=== PATIENT | male | born 1945 | race African-American/Black ===

== ENCOUNTER 2020-04-13 13:51 | Emergency (ER) | payer BC, MEDICARE, OTHER ==
[~2020-04-13] VITALS: Ht 180.3 cm; Wt 68.0 kg
[~2020-04-13 13:51] MED LIST: COLACE100 MG ORAL; NKM; NORCO 5-325 TA1 EACH ORAL
[2020-04-13 15:12] LABS: ANION GAP 13 mmol/L (5-15); BLOOD UREA NITROGEN 16 mg/dL (7-18); CALCIUM 9.6 MG/DL (8.5-10.1); CARBON DIOXIDE 25 MMOL/L (21-32); CHLORIDE 105 MMOL/L (98-107); POTASSIUM 3.8 MMOL/L (3.5-5.1); SODIUM 143 MMOL/L (136-145)
[2020-04-13 15:17] LABS: ALANINE AMINOTRANSFERASE 20 U/L (12-78); ALBUMIN 4.4 G/DL (3.4-5.0); ALBUMIN/GLOBULIN RATIO 1.4 (1.0-2.7); ALKALINE PHOSPHATASE 61 U/L (46-116); ASPARTATE AMINO TRANSFERASE 22 U/L (15-37); BILIRUBIN,TOTAL 0.8 MG/DL (0.2-1.0)
--- NOTE | 2020-04-13 15:20 | Emergency Room Report ---
History of Present Illness General Chief Complaint: Lower Extremity Injury Source: Patient, Medical Record Present Illness HPI This patient states that he has a history of neuropathy. This makes him unsteady on his feet. He states that a week ago he fell onto his left hip. He has a history of a hip fracture and has screws in his left hip. He states this surgery was 5 years ago. He states that a week ago when he fell it was early in the morning and he lost his balance. He has pain in his left hip and the left buttock. He denies left knee pain. He denies weakness. He denies tingling or numbness. He denies abdominal pain. He denies chest pain or shortness of breath. He denies abdominal pain. He states that the pain is so severe that he is able to only slightly bear weight on the left leg. He has been using a crutch to get around. He denies headache or neck pain. He has no other complaints. Allergies: Coded Allergies: PENICILLINS (Verified Allergy, Unknown, 07/17/15) COVID-19 Screening Contact w/high risk pt: No Experienced COVID-19 symptoms?: No COVID-19 Testing performed COMPENSATION INTERN: No Patient History Past Medical History: see triage record, other - Neuropathy Social History: Denies: smoking, alcohol use, drug use Reviewed Nursing Documentation: PMH: Agreed; PSxH: Agreed Nursing Documentation-PMH Past Medical History: No History, Except For Hx Cardiac Problems: No - left hip surgery Hx Cancer: No Hx Gastrointestinal Problems: No Hx Neurological Problems: No Review of Systems All Other Systems: negative except mentioned in HPI Physical Exam Vital Signs Date Time Temp Pulse Resp B/P (MAP) Pulse Ox O2 Delivery O2 Flow Rate FiO2 04/13/20 14:05 97.2 72 20 123/74 (90) 96 Room Air Sp02 EP Interpretation: reviewed, normal General Appearance: no apparent distress, alert, GCS 15, non-toxic Head: normocephalic, atraumatic Eyes: bilateral eye normal inspection, bilateral eye PERRL ENT: hearing grossly normal, normal pharynx, no angioedema, normal voice Neck: full range of motion, supple/symm/no masses Respiratory: chest non-tender, lungs clear, normal breath sounds, no respiratory distress, no retraction, no accessory muscle use, speaking full sentences Cardiovascular #1: regular rate, rhythm, no edema Gastrointestinal: normal bowel sounds, non tender, soft, non-distended, no guarding, no rebound Rectal: deferred Musculoskeletal: back normal, normal range of motion, pelvis stable, other - TTP over the L. pelvis, upper femur and L. buttock. No ecchymosis, no obvious deformity. Antalgic gait. Neurologic: alert, motor strength/tone normal, oriented x3, sensory intact, responsive, speech normal Psychiatric: judgement/insight normal, memory normal, mood/affect normal, no suicidal/homicidal ideation Skin: no rash, normal color Medical Decision Making Diagnostic Impression: Primary Impression: Acetabular fracture ER Course This patient has a nondisplaced left acetabular roof fracture. I discussed the case with the on-call orthopedic surgeon Dr. Fletcher. He states that this is not a surgical injury. The patient will be nonweightbearing with toe-touch down only on crutches. The patient states that is what he has been doing already. He states he is able to get around with crutches. I will not place the patient on any narcotics for fear of making him more unstable. I did give the patient a Lidoderm patch here in the emergency department and I will give him a prescription for these patches. He states that his pain is only and he does weightbearing. I will refer the patient to Dr. Fletcher for follow-up. There was a incidental finding of a calcification in the left ureter. However, the patient has no symptoms. The patient will follow-up with his primary care physician. Laboratory Tests Test 04/13/20 14:25 White Blood Count 9.1 K/UL (4.8-10.8) Red Blood Count 4.00 M/UL (4.70-6.10) L Hemoglobin 14.6 G/DL (14.2-18.0) Hematocrit 43.8 % (42.0-52.0) Mean Corpuscular Volume 109 FL (80-99) H Mean Corpuscular Hemoglobin 36.6 PG (27.0-31.0) H Mean Corpuscular Hemoglobin Concent 33.5 G/DL (32.0-36.0) Red Cell Distribution Width 10.1 % (11.6-14.8) L Platelet Count 300 K/UL (150-450) Mean Platelet Volume 7.2 FL (6.5-10.1) Neutrophils (%) (Auto) 70.7 % (45.0-75.0) Lymphocytes (%) (Auto) 18.2 % (20.0-45.0) L Monocytes (%) (Auto) 7.9 % (1.0-10.0) Eosinophils (%) (Auto) 2.1 % (0.0-3.0) Basophils (%) (Auto) 1.0 % (0.0-2.0) Prothrombin Time 10.3 SEC (9.30-11.50) Prothrombin Time INR 0.9 (0.9-1.1) Activated Partial Thromboplast Time 25 SEC (23-33) Sodium Level 143 MMOL/L (136-145) Potassium Level 3.8 MMOL/L (3.5-5.1) Chloride Level 105 MMOL/L (98-107) Carbon Dioxide Level 25 MMOL/L (21-32) Anion Gap 13 mmol/L (5-15) Blood Urea Nitrogen 16 mg/dL (7-18) Creatinine 1.0 MG/DL (0.55-1.30) Estimated Glomerular Filtration Rate > 60 mL/min (>60) Glucose Level 122 MG/DL (74-106) H Calcium Level 9.6 MG/DL (8.5-10.1) Total Bilirubin 0.8 MG/DL (0.2-1.0) Aspartate Amino Transferase (AST) 22 U/L (15-37) Alanine Aminotransferase (ALT) 20 U/L (12-78) Alkaline Phosphatase 61 U/L (46-116) Troponin I 0.002 ng/mL (0.000-0.056) Total Protein 7.5 G/DL (6.4-8.2) Albumin 4.4 G/DL (3.4-5.0) Globulin 3.1 g/dL Albumin/Globulin Ratio 1.4 (1.0-2.7) EKG Diagnostic Results Rate: normal Rhythm: NSR ST Segments: other - NSST Rhythm Strip Diag. Results EP Interpretation: yes Rate: 70's Rhythm: NSR, no PVC's, no ectopy Other X-Ray Diagnostic Results Other X-Ray Diagnostic Results : X-Ray ordered: L.Hip xray # of Views/Limited Vs Complete: Complete Indication: Pain EP Interpretation: Yes Interpretation: no dislocation, no fractures Impression: No acute disease Electronically Signed by: Teodora Paez DO CT/MRI/US Diagnostic Results CT/MRI/US Diagnostic Results : Imaging Test Ordered: CT pelvis Impression Impression: Positive for nondisplaced left acetabular roof fracture. Unusual finding of what appears to be a large 9 x 6 mm calculus at the distal ureter. It is possible that this is adjacent to rather than within the ureter but on all 3 projections it appears to be intraureteral. Also, this is visible on plain radiograph done immediately prior but not on a 2015 plain radiograph making it much less likely represent a phlebolith. There is no ureterectasis despite this. Consider sonography of the kidneys or abdominal CT to determine if there is any hydronephrosis Postsurgical changes of the left hip Colonic diverticulosis. No evidence of diverticulitis Small left hip region soft tissue contusion Degenerative lumbosacral spondylosis Prostatomegaly Last Vital Signs Date Time Temp Pulse Resp B/P (MAP) Pulse Ox O2 Delivery O2 Flow Rate FiO2 04/13/20 14:05 97.2 72 20 123/74 (90) 96 Room Air Status: improved Disposition: HOME, SELF-CARE Condition: Improved Referrals: ZINA BROOKS Additional Instructions: Please follow-up with Dr. Prajapati, orthopedic surgeon within the next 14 days. Please do not weight-bear on your left leg. You can use crutches with toe touchdown. Teodora Paez DO Apr 13, 2020 15:20
[2020-04-13 15:41] LABS: INR 0.9 (0.9-1.1)
[2020-04-13 15:42] LABS: EOSINOPHILS % (AUTO) 2.1 % (0.0-3.0); HEMATOCRIT 43.8 % (42.0-52.0); HEMOGLOBIN 14.6 G/DL (14.2-18.0); LYMPHOCYTES % (AUTO) 18.2 % (20.0-45.0); MEAN CORPUSCULAR VOLUME 109 FL (80-99); MONOCYTES % (AUTO) 7.9 % (1.0-10.0); NEUTROPHILS % (AUTO) 70.7 % (45.0-75.0); PLATELET COUNT 300 K/UL (150-450); RED CELL DISTRIBUTION WIDTH 10.1 % (11.6-14.8); WHITE BLOOD COUNT 9.1 K/UL (4.8-10.8)
--- NOTE | 2020-04-13 15:55 | Diagnostic Imaging Report ---
Indication: Reason For Exam: FALL Technique: 2 views of the left hip and one view of the pelvis Comparison: 07/18/2015 Findings: 3 surgical nails are seen reducing previously demonstrated femoral neck fracture. This appears well-healed. No plain radiographic evidence of acute fracture visualized. Note that subsequent CT scan demonstrates a nondisplaced acetabular roof fracture. This is not clearly evident on plain radiographs. Multiple phleboliths are seen in the pelvis. However, there is an oblong 9 x 5 mm calcification just to the left of midline within the pelvis which is not evident on the prior studies. Subsequent CT scan indicates that this is probably a large distal ureteral calculus. The joint spaces are preserved Impression: No plain radiographic evidence of acute bony trauma. Note that acetabular fracture described on subsequent CT scan is not evident on plain radiographs. New pelvic calcification is quite likely a distal ureteral calculus-see discussion on separate CT report. Postsurgical and posttraumatic changes of the left hip Degenerative changes of the lumbosacral junction
--- NOTE | 2020-04-13 15:55 | Diagnostic Imaging Report ---
Indication: Pain, trauma, left hip pain after fall Technique: Noncontrast spiral acquisitions obtained through the pelvis. Multiplanar reconstructions generated. Total dose length product 155 mGycm. CTDIvol(s) 4 mGy. Dose reduction achieved using automated exposure control Comparison: Left hip radiograph of earlier the same day Findings: 3 surgical screws are seen reducing old well-healed femoral neck fracture. The hardware appears intact. There is a nondisplaced fracture of the roof of the acetabulum. This predominantly involves the cortex, extends only slightly into the medullary space. This is occult on the prior plain radiographs. No other acute fractures are demonstrated. No dislocations. The joint spaces are preserved. There is slight soft tissue contusion in the lateral hip subcutaneous fat. There are degenerative changes of the lumbosacral junction. There is a 9 x 6 mm calcification that appears to be within the distal left ureter on all projections. However, the ureter does not appear to be dilated. There is colonic diverticulosis. The prostate is enlarged. Impression: Positive for nondisplaced left acetabular roof fracture. Unusual finding of what appears to be a large 9 x 6 mm calculus at the distal ureter. It is possible that this is adjacent to rather than within the ureter but on all 3 projections it appears to be intraureteral. Also, this is visible on plain radiograph done immediately prior but not on a 2015 plain radiograph making it much less likely represent a phlebolith. There is no ureterectasis despite this. Consider sonography of the kidneys or abdominal CT to determine if there is any hydronephrosis Postsurgical changes of the left hip Colonic diverticulosis. No evidence of diverticulitis Small left hip region soft tissue contusion Degenerative lumbosacral spondylosis Prostatomegaly The CT scanner at [facility] is accredited by the [employer] and the scans are performed using protocols designed to limit radiation exposure to as low as reasonably achievable to attain images of sufficient resolution adequate for diagnostic evaluation.
[2020-04-13] MEDS ORDERED: LIDODERM700 M1 TOPIC (16:31)
[2020-04-13 16:40] VITALS: BP 121/74
== END 2020-04-13 16:40 | disposition home or self-care (01) ==
LOC: EMR 14:42
DX: S32.492A Other specified fracture of left acetabulum, initial encounter for closed fracture (principal); W01.0XXA Fall on same level from slipping, tripping and stumbling without subsequent striking against object, initial encounter; Y93.9 Activity, unspecified; Y92.9 Unspecified place or not applicable; Z88.0 Allergy status to penicillin
CPT/HCPCS: 36415; 72192; 73502; 80053; 84484; 85025; 85610; 85730; 93005; 99284